=== PATIENT | female | born 1940 | race Two or more races ===

== ENCOUNTER 2024-06-04 16:37 | Inpatient (IN) | payer MEDICAID, SELFPAY ==
[2024-06-04 16:45] VITALS: BP 132/90; PULSE 107; RESP 20; TEMP 36.8; O2SAT 98
--- NOTE | 2024-06-04 17:07 | XR_ITS ---
Examination: CT brain head without contrast. 2-D sagittal coronal reconstructions Date and time of exam:June 04, 2024 1712 hrs. Indications: Patient fell today with injury to the head, head pain the large hematoma back of the head CTDI: vol (mGy):39.6 DLP: (mGycm):807 Technique: Multiple CT axial sections of the brain have been obtained, 5 mm slice thickness. Contrast has not been administered. 2-D sagittal, coronal reconstructions have been obtained Low dose protocols were performed. One or more of the following dose reduction techniques were used; automated exposure control, adjustment of the mA and/or KV according to patient size, use of iterative reconstruction technique. Findings: No significant ventricular enlargement. Intra-axial or extra-axial hemorrhage density is not seen. No mass effect or midline shift Basal cisterns are not remarkable. Fourth ventricle is midline. Cranial vault intact. Posterior left scalp hematoma Impression: Negative for acute hemorrhage, mass effect or midline shift
--- NOTE | 2024-06-04 17:07 | XR_ITS ---
Examination: CT cervical spine without contrast 2-D sagittal reconstructions 2-D coronal reconstructions 3-D reconstructions. Exam date and time:June 04, 2024 1712 hrs. Indications: Patient fell today with into the neck, neck pain CTDI:vol (mGy) 6.94 DLP: (mGycm) 155 Technique: Multiple 2 mm axial sections of the cervical spine have been obtained. The coronal and sagittal reconstructions have been obtained. 3-D reconstructions have been obtained. Low dose protocols were performed. One or more of the following dose reduction techniques were used; automated exposure control, adjustment of the mA and/or KV according to patient size, use of iterative reconstruction technique. Findings: Axial sections demonstrate intact base of the skull. C1 exhibit satisfactory relationship to the odontoid. No acute cervical vertebral body fracture seen. Alignment posterior spinous processes satisfactory. Advanced degenerative disc disease C5-C6 Impression: No acute cervical fracture.
--- NOTE | 2024-06-04 17:07 | XR_ITS ---
Examination: CT chest, without intravenous contrast. CT abdomen, without intravenous contrast. CT pelvis, without intravenous contrast. 2-D sagittal and coronal reconstructions. 3-D reconstructions. Date and time of exam:June 04, 2024 1725 hrs. Indications: Patient fell today with injury of the chest and abdomen, chest pain abdomen pain CTDI vol (mgy) 7.20 DLP (MGycm)422 Technique: Multiple CT images, 3.0 mm slice thickness, obtained chest, abdomen, pelvis, with the high-resolution 64 slice scanner.. Sagittal and coronal 2-D reconstructions are obtained. 3-D reconstructions Low dose protocols were performed. One or more of the following dose reduction techniques were used; automated exposure control, adjustment of the mA and/or KV according to patient size, use of iterative reconstruction technique. Findings: No pneumothorax pulmonary contusion or hemothorax Thoracic aorta pulmonary arteries intact No hemopericardium Manubrium sternum intact Fracture off the anterior superior margin of the T12 vertebral body, alignment of this vertebral body is satisfactory No abdominal parenchymal laceration Abdominal aorta intact Cholelithiasis Normal appendix Negative for pneumoperitoneum There is a fracture off the anterior cortex of S3 with slight offset as well as presacral hematoma measuring up to 17 mm Old right-sided rib fractures Acute fracture anterior both right and left inferior pubic rami with mild thickening of the piriformis muscles Hips appear intact Impression: No hemopericardium, pneumothorax, pulmonary contusion or hemothorax No abdominal parenchymal laceration Acute fracture anterior superior margin T12 vertebral body Acute fracture S3 with presacral hematoma Nondisplaced acute fractures right and left inferior pubic rami
--- NOTE | 2024-06-04 17:07 | PD.EDRME ---
Rapid Medical Screening Exam RME Arrival date/time: 06/04/24 16:37 82-year-old female presents the emergency department complains of trip and fall Chief Complaint: Fall Vital signs: Vital Signs Temperature 98.3 F 06/04/24 16:45 Pulse Rate 107 H 06/04/24 16:45 Respiratory Rate 20 06/04/24 16:45 Blood Pressure 132/90 H 06/04/24 16:45 Pulse Oximetry (%) 98 06/04/24 16:45 Oxygen Delivery Method Room Air 06/04/24 16:45
[2024-06-04] MEDS: HYDROcodone/APAP 5/325 TABLET 1 TAB PO (17:42)
--- NOTE | 2024-06-04 19:19 | PC.NURSE ---
Dr. Harden speaking to teleradiology at this time
[2024-06-04 19:38] VITALS: BP 172/102; PULSE 121; RESP 19; TEMP 36.8; O2SAT 95
[2024-06-04] MEDS: DIPHTH,PERTUSS(ACELL),TET VAC 0.5 ML VIAL IMi (20:42)
[2024-06-04] MEDS: cephALEXin 250 MG CAPSULE 500 MG PO (20:42)
[2024-06-04] MEDS: BACITRACIN OINT 1 GM PACKET TOP (20:43)
--- NOTE | 2024-06-04 20:51 | EDNOTE_ITS ---
ED Fall Injury RME/HPI General Chief Complaint: Fall Stated Complaint: FALL Time Seen by Provider: 06/04/24 19:20 Arrival date/time: 06/04/24 16:37 RME / HPI RME / HPI Narrative: 06/04/24 16:37 82-year-old female presents the emergency department complains of trip and fall This section includes all my notes and documentations, including HPI, PE, and ED course. Cordell Harden MD HPI: 82-year-old female here to be evaluated after a mechanical fall at home a few hours ago. She fell on her head and her right side. She has an open wound with bleeding on top of her head. She also reports lower back pain. She takes Eliqu is. No headache or dizziness. No neck pain. No chest pain or abdominal pain. No pain in the arms. No other complaints. ROS: All negative except as documented in HPI. Physical Exam: General: Alert and oriented. No acute distress when remaining still. HEENT: On top of her head, there is a 1 cm full?scalp thickness laceration with active bleeding. EOMI. PERRL. Neck: Supple. No tenderness. Heart: RRR. Lungs: No respiratory distress. Good air movement. No rhonchi, wheezing, rales. Chest: No tenderness. Abdomen: Soft and nontender. Normal bowel sounds. No distension. No rebound or guarding. Back: Equivocal tenderness in the lumbar region. Legs: No clubbing, cyanosis, edema. Skin: Warm and dry. Neuro: Alert and oriented X 3. Cranial Nerves II-XII grossly intact. No peripheral motor deficits. Musculoskeletal: Equivocal pelvic tenderness. All other major joints and bones are not tender with no limited ROM. I reviewed all diagnostic test results. My review of the CT reports is T12 fracture, sacral fracture with hematoma, and pelvic fracture. I discussed the case with our orthopedic surgeon and our hospitalist. About the presentation and exam and diagnostics and treatments here. And need of further care in the hospital. Will accept the patient. Our orthopedic surgeon recommends no Eliquis for 48 hours. Cordell Harden MD Related Data Previous Rx's ?Medication ?Instructions ?Recorded glipizide 10 mg tablet 10 mg PO ACBR #30 tabs 02/17/17 apixaban 2.5 mg tablet (Eliquis) 2.5 mg PO BID #24 tabs 07/31/17 lisinopril 10 mg tablet 10 mg PO QDAY #30 tabs 07/31/17 Allergies Allergy/AdvReac Type Severity Reaction Status Date / Time Penicillins Allergy Mild SWOLLEN Verified 07/27/17 13:39 AND RASH Course Quality Measures none Orders Category Date Time Status COVID-19 Screening Questionnaire NOW Care 06/04/24 20:48 Active Decision to Admit X1 Care 06/04/24 20:48 Active Wound Care [Wound Care] NOW Care 06/04/24 19:46 Active Consult to Orthopedic Stat Cons 06/04/24 20:[address] cervical spine wo con Stat Exams 06/04/24 17:[address] chest abdomen pelvis wo Stat Exams 06/04/24 17:[address] head/brain wo con Stat Exams 06/04/24 17:07 Completed UA, C/S IF [Urinalysis, C/S if Indicated] Stat Lab 06/04/24 20:47 Ordered Bacitracin Oint pkt Med 06/04/24 19:44 Discontinued 1 gm TOP X1 ONE HYDROcodone*/APAP 5/325 [[place] 5/325] Med 06/04/24 17:07 Discontinued 1 tab PO X1 ONE Tet,Diphth,Pertuss(Acell)-Tdap [Boostrix Vacc] Med 06/04/24 19:44 Discontinued 0.5 ml IMI .ONCE ONE cephALEXin [Keflex] Med 06/04/24 19:44 Discontinued 500 mg PO X1 ONE Vital Signs Vital signs: Vital Signs Temperature 98.3 F 06/04/24 16:45 Pulse Rate 107 H 06/04/24 16:45 Respiratory Rate 20 06/04/24 16:45 Blood Pressure 132/90 H 06/04/24 16:45 Pulse Oximetry (%) 98 06/04/24 16:45 Oxygen Delivery Method Room Air 06/04/24 16:45 Fall Patient data External records reviewed:: [facility] previous records Clinical information provided by:: patient and family Social determinants that could affect healthcare access:: none Patient has the following chronic illnesses:: CVA, DM, HTN How is presenting disease/condition affected by chronic disease/condition?: uneffected by Evaluation data The following diagnostics were reviewed and interpreted by me:: lab results and radiology exam(s) Lab and/or radiology exams considered but not ordered:: None Interpretation Summary: Scalp laceration, T12 fracture, sacral fracture with hematoma, pelvic fracture Medications / Prescriptions Medications or Prescriptions considered but not ordered:: None Medication administrations:: Medication Administration History Discontinued Medications Hydrocodone Bitart/Acetaminophen (Hydrocodone/Apap 5/325 Tablet) 1 tab PO X1 ONE Stop: 06/04/24 17:08 Last Admin: 06/04/24 17:42 Dose: 1 tab Documented By: Bacitracin (Bacitracin Oint 1 Gm Packet) 1 gm TOP X1 ONE Stop: 06/04/24 19:45 Last Admin: 06/04/24 20:43 Dose: 1 gm Documented By: SF Cephalexin HCl (Cephalexin 250 Mg Capsule) 500 mg PO X1 ONE Stop: 06/04/24 19:45 Last Admin: 06/04/24 20:42 Dose: 500 mg Documented By: SF Diphtheria/Tetanus/Acell Pertussis (Diphth,Pertuss(Acell),Tet Vac 0.5 Ml Vial) 0.5 ml IMi .ONCE ONE Stop: 06/04/24 19:45 Last Admin: 06/04/24 20:42 Dose: 0.5 ml Documented By: SF See chart Consultations Consultation(s) initiated? (list below): Yes Consultation #1 (Physician, Specialty, Details): Orthopedic surgeon--recommended admission and no Eliquis for 48 hours. Time: 20:40 Diagnosis Fall Differential Diagnosis: compression fracture and other (Brain injury, internal organ injury, fractures) Most likely diagnosis given after review of the tests above:: None Admission Indicated Admission indicated?: indicated Explain why admission is indicated or not indicated:: Orthopedic surgeon recommended admission Admission Request Was there a request for admission?: Yes Admission Attestation Admission request attestation: Discussed case with Hospitalist service regarding admission. Discussed patients ED course, exam findings, labs, and radiology results. The Hospitalist [agrees,declines] to accept the patient for admission. Disposition Plan Disposition Plan: Admit Discharge Plan Plan Patient Disposition: Admit Acute Care w/in Hospital Prescriptions/Referrals Prescriptions/Med Rec: No Action glipizide 10 MG tablet 10 mg PO ACBR Qty: 30 0RF apixaban [Eliquis] 2.5 mg Tablet 2.5 mg PO BID Qty: 24 0RF lisinopril 10 mg tablet 10 mg PO QDAY Qty: 30 0RF Referrals: Baljeet Roland MD [Primary Care Provider] - In 1 week Problem List Clinical Impression: Fall at home, T12 vertebral fracture, Laceration of scalp, Sacral fracture, Hematoma of sacrum, Pelvic fracture Patient/Caregiver Discharge Instructions Print Language: Togolese Stand Alone Forms: Renae Award Info., Patient Portal Info Letter
[2024-06-04 21:30] LABS: Collection Type, Urine Clean Catch; Squamous Epithelial Cell,Urine 0 /hpf (0-5)
--- NOTE | 2024-06-04 22:03 | ESHP_ITS ---
<Statement entered by Nieves Riley MD - 06/05/24 00:20> I Nieves Riley MD reviewed the note and agree with the resident's assessment & plan with exceptions as below. I have personally reviewed labs, imaging, home meds/prior records, examined the patient, formulated and discussed management plan with the IM team. An 82-year-old F with Hx of HLD, HTN, presented to ED following a fall with scalp laceration and back/hip pain noted to sustain multiple fractures including T12, S3 and pubic ramus. Patient noted to be in sinus tachycardia, had significant leukocytosis likely reactive in nature. UA positive for ketones, CT head unremarkable. Consult orthopedic surgery, admit inpatient for potential surgical repair. Continue gentle IV fluid resuscitation, hold anticoagulation / antiplatelets, n.p.o. past midnight. Hold on ARB's. Not starting on beta- blockers for rate control prior to a procedure. Documentation for date of: 06/04/24 HPI History of Present Illness History of present illness: The patient is an 82-year-old female with a past medical history of hypertension, hyperlipidemia, diabetes who presented to the ED on 06/04/2024 after a fall. Patient was said to have been in usual state of health until early hours of today, she had been out with her granddaughter when he got back home she was being helped out of the car. Patient walks with a walker. And was using it to get back into the house when she missed a step and fell and landed on her back and head. She said to not have lost consciousness but there is noticeable bleeding in the back of the head when she was helped back up. Patient had no concussive symptoms, no memory loss or gaps and no blackouts. She did endorse pain in the back of her head as well as her back in the lumbar region and pelvis. Shortly after, she was brought to the ED. Per ED doctor, patient was on Eliquis, however when patient and relative rest, it was reported that she only takes vitamins right now does not take any other medication, says her primary care but not in a while and has not been followed by any client relations specialist. ED course: In the ED, patient complained of pain in the back of the pelvic region, she was afebrile, however tachycardic with blood pressure borderline range on admission. CT cervical spine was negative as well as head CT. CT abdomen pelvis showed acute fracture of the anterior superior margin of T12 body and acute fractures of S3 with presacral hematoma as well as nondisplaced acute fractures of the right and left inferior pubic rami. The patient was given [place] in the ED as well as DTaP and Keflex, Ortho Dr Giles consulted and recommended to admit patient for possible surgical intervention. Review of Systems Review of Systems Narrative Review of Systems: GENERAL: Denies fevers/chills or diaphoresis. HEENT: Admits to 3/10 headache. NEURO: Denies unusual weakness or difficulty speaking. CARDIO: Denies chest pain or palpitations. PULM: Denies SOB, coughing, or wheezing. GI: Denies abdominal pain, N/V/C/D/reflux/gas, bright red blood per rectum or melena. Reports having BMs. URO: Denies burning/itching/pain/urinary changes. MSK/EXT/SKIN: Admits pain in occipital region, back and pelvic region. PSYCH: Cooperative, pleasant mood & affect. Exam Vital Signs Temp Pulse Resp BP Pulse Ox O2 Del Method 98.3 F 121 H 19 172/102 H 95 Room Air 06/04/24 19:38 06/04/24 19:38 06/04/24 19:38 06/04/24 19:38 06/04/24 19:38 06/04/24 19:38 Narrative Exam GENERAL: AAOX3 NEURO: [employer] grossly intact, moves extremities x4 HEENT: 2 x 2.5 cm laceration seen in the occipital region, with blood dried in hair. CARDIO: No chest pain on palpation. Heart RRR, no obvious murmurs PULM: No noted coughing/dyspnea. Lungs CTA B/L GI: Abdomen soft, nondistended, no pain on palpation. 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 SKIN/MSK/EXT: Occiput tender to touch, tenderness to palpation in the lumbosacral region as well as mild tenderness in the anterior pelvis. Results: Labs 06/04/24 21:58 06/04/24 21:58 Quality Measures Quality Measures none Advance care planning discussed with:: patient and child Medications Home Medications and Allergies Allergies Allergy/AdvReac Type Severity Reaction Status Date / Time Penicillins Allergy Mild SWOLLEN Verified 07/27/17 13:39 AND RASH Visit Medications Acetaminophen (Acetaminophen 325 Mg Tablet) 650 mg PO Q6H PRN PRN Reason: Pain 1-3 or Fever >100.3 Stop: 07/04/24 21:44 Hydrocodone Bitart/Acetaminophen (Hydrocodone/Apap 5/325 Tablet) 1 tab PO Q4HR PRN PRN Reason: PAIN SCALE 4-10(Mod-Sev Stop: 06/09/24 21:44 Ondansetron HCl (Ondansetron Inj 2 Mg/Ml Inj 2 Ml) 4 mg IV Q6H PRN; Protocol PRN Reason: NAUSEA OR VOMITING Stop: 07/04/24 21:44 Sennosides (Senna Tablet) 1 tab PO QDAY RON; Protocol Stop: 07/05/24 08:59 Discontinued Medications Hydrocodone Bitart/Acetaminophen (Hydrocodone/Apap 5/325 Tablet) 1 tab PO X1 ONE Stop: 06/04/24 17:08 Last Admin: 06/04/24 17:42 Dose: 1 tab Bacitracin (Bacitracin Oint 1 Gm Packet) 1 gm TOP X1 ONE Stop: 06/04/24 19:45 Last Admin: 06/04/24 20:43 Dose: 1 gm Cephalexin HCl (Cephalexin 250 Mg Capsule) 500 mg PO X1 ONE Stop: 06/04/24 19:45 Last Admin: 06/04/24 20:42 Dose: 500 mg Diphtheria/Tetanus/Acell Pertussis (Diphth,Pertuss(Acell),Tet Vac 0.5 Ml Vial) 0.5 ml IMi .ONCE ONE Stop: 06/04/24 19:45 Last Admin: 06/04/24 20:42 Dose: 0.5 ml Heparin Sodium (Porcine) (Heparin Sod Inj 5000 Unit/Ml Vial) 5,000 unit SC X1 ONE Stop: 06/04/24 21:49 Assessment & Plan Assessment Summary: The patient is an 82-year-old female with past medical history of hypertension, hyperlipidemia, diabetes who presented to the ED on 06/04/2024 after fall. #Acute pubic fracture #Acute fracture of T12 and S3 #s/p fall The patient presented and says she fell while ambulating with her walker. (Bedside states that she missed a step and fell on her back and had a period after she was also noticed to be bleeding in the back of head, however she did not lose consciousness and was not having blackouts. Patient endorsed pain in the back of her head as well as in pelvic region. Head CT and CT cervical spine are negative. In CT abdomen pelvis showed acute fracture of the anterior superior margin of T12 body and acute fractures of S3 with presacral hematoma as well as nondisplaced acute fractures of the right and left inferior pubic rami. Ortho Dr Giles consulted and recommended to admit patient for possible surgical intervention. Plan: -Admit to [facility] -Pain management, Tylenol, [place] -N.p.o. after midnight -Subcu heparin x 1 -Ortho consulted, appreciate recommendations #History of hypertension #History of hyperlipidemia The patient has a history of hypertension hyperlipidemia but is reported, does not use any medications currently. Blood pressure on admission initially borderline and after 170/102. Heart rate- 121 Plan: -IV labetalol 10 mg x 1 -Amlodipine 5mg daily #Leukocytosis WBC on admission was 17.8. Patient had no fever cough, GI or urinary symptoms. UA 4+ glucose, 2+ ketones and RBCs but negative esterase Plan: -Continue to monitor CBC #History of diabetes Patient has a history of diabetes reportedly uses no medications right now. Blood present on admission- 265 Last A1c 7 years ago-7.9 Plan: -A1c -ISS -Hypoglycemic protocol in place -Blood glucose check every 6 hours patient is n.p.o. Health maintenance: Dispo: MedSurg Diet: Car consistent low DVT: SC Heparin x1 [place]: None Lines: Peripheral Med Rec: Pending, f/u PT: Ordered Code: Full Case was discussed with attending physician, Dr Osvaldo Scott MD PGY-1
[2024-06-04 22:06] VITALS: BP 142/82; PULSE 123; RESP 18; TEMP 37.1; O2SAT 91
[2024-06-04 22:11] LABS: Bilirubin,Urine Negative (Negative); Blood,Urine 1+ (Negative); Clarity,Urine Clear (Clear/Hazy); Color,Urine Lt-Yellow (Lt Yel-Yel); Culture Indicated,Urine Not Indicated; Glucose, Urine 4+ (Negative); Ketones,Urine 2+ (Negative); Leukocyte Esterase,Urine Negative (Negative); Nitrite,Urine Negative (Negative); PH,Urine 6.5 (5.0-7.0); Protein,Urine Trace (Neg - Trace); RBC,Urine 13 /hpf (0-3); Specific Gravity,Urine 1.024 (1.001-1.035); Urobilinogen,Urine Negative mg/dL (0.0-1.0); WBC,Urine 5 /hpf (0-5)
[2024-06-04 22:12] LABS: Basophils # (Auto) 0.1 Thou/mm3 (0.0-0.2); Basophils % (Auto) 0 % (0-2.5); Eosinophils % (Auto) 0 % (0-10); Hematocrit 37.4 % (36.0-46.0); Hemoglobin 12.6 g/dL (12.0-16.0); Immature Granulocytes % (Auto) 1 % (0-0); Lymphocytes # (Auto) 0.7 Thou/mm3 (1.0-4.8); Lymphocytes % (Auto) 4 % (10-50); Mean Corpuscular HGB Conc 33.7 g/dl (31.0-37.0); Mean Corpuscular Hemoglobin 30.5 pg (25.0-35.0); Mean Corpuscular Volume 91 fL (80-100); Monocytes # (Auto) 0.8 Thou/mm3 (0.0-0.8); Monocytes % (Auto) 4 % (0-12); Neutrophils # (Auto) 16.1 Thou/mm3 (1.8-7.7); Neutrophils % (Auto) 91 % (37-80); Nucleated Red Blood Cell % 0 /100 WBC (0); Platelet Count 231 Thou/mm3 (140-440); RDW Standard Deviation 43.5 fL (36.4-46.3); Red Blood Count 4.13 Miln/mm3 (4.00-5.20); White Blood Count 17.8 Thou/mm3 (3.6-11.0)
[2024-06-04 22:22] LABS: Alanine Aminotransferase 10 U/L (10-49); Albumin, Serum 4.4 gm/dL (3.4-4.8); Albumin/Globulin Ratio 1.3 (1.2-2.2); Alkaline Phosphatase 111 U/L (46-116); Anion Gap 10 (7-16); Aspartate Amino Transferase 19 U/L (0-34); BUN/Creatinine Ratio 18 Ratio (12-20); Bilirubin,Total 0.8 mg/dL (0.3-1.2); Blood Urea Nitrogen 11 mg/dL (9-23); Calcium 9.7 mg/dL (8.3-10.6); Calcium (Corrected) 9.7 mg/dL (8.5-10.1); Carbon Dioxide 26.2 mMol/L (20.0-31.0); Chloride 97 mMol/L (98-107); Creatinine (Component) 0.6 mg/dL (0.6-1.3); Globulin 3.3 gm/dL (2.3-3.5); Glucose 265 mg/dL (74-106); Osmolality,Calculated 274 (275-295); Potassium 3.8 mMol/L (3.4-5.1); Sodium 133 mMol/L (136-145); Total Protein 7.7 gm/dL (5.7-8.2); eGFR > 60 See Note
[2024-06-04] MEDS: HEPARIN SOD INJ 5000 UNIT/ML VIAL SC (22:37)
[2024-06-04] MEDS: LIDOCAINE/PRILOCAINE CR 5GM 5 GM TUBE TOP (22:38)
[2024-06-04 22:59] LABS: Glucose Estimated Average 206 mg/dL (80-131); Hemoglobin A1C 8.8 % Hgb (4.8-6.0)
[2024-06-05] VITALS (8 sets, daily range): BP systolic 130–149; BP diastolic 72–87; PULSE 93–125; RESP 17–89; TEMP 36.1–37.1; O2SAT 92–94; BMI 18.8; BMI 13.0
[2024-06-05] MEDS: INSULIN HUM REGULAR 1 UNIT/0.01 ML (PER UNIT) SC (00:41)
[2024-06-05] MEDS: ACETAMINOPHEN w/COD 300-30 TABLET 2 TAB PO (00:50)
--- NOTE | 2024-06-05 01:43 | PC.NURSE ---
o2 SAT 89%WHILE SLEEPING. o2 nc 3l PLACED ON PT
--- NOTE | 2024-06-05 01:55 | PC.NURSE ---
Report called at around 0135. RN unable to receive report at that time. report given now to Armond TOM
[2024-06-05 05:48] LABS: Basophils % (Auto) 0 % (0-2.5); Eosinophils % (Auto) 0 % (0-10); Hematocrit 35.6 % (36.0-46.0); Hemoglobin 11.9 g/dL (12.0-16.0); Immature Granulocytes % (Auto) 1 % (0-0); Immature Granulocytes Auto 0.06 Thou/mm3 (0.00-0.00); Lymphocytes # (Auto) 1.2 Thou/mm3 (1.0-4.8); Lymphocytes % (Auto) 9 % (10-50); Mean Corpuscular HGB Conc 33.4 g/dl (31.0-37.0); Mean Corpuscular Hemoglobin 30.7 pg (25.0-35.0); Mean Corpuscular Volume 92 fL (80-100); Monocytes # (Auto) 0.9 Thou/mm3 (0.0-0.8); Monocytes % (Auto) 7 % (0-12); Neutrophils # (Auto) 10.7 Thou/mm3 (1.8-7.7); Neutrophils % (Auto) 83 % (37-80); Nucleated Red Blood Cell % 0 /100 WBC (0); Platelet Count 224 Thou/mm3 (140-440); RDW Standard Deviation 44.9 fL (36.4-46.3); Red Blood Count 3.88 Miln/mm3 (4.00-5.20); White Blood Count 12.9 Thou/mm3 (3.6-11.0)
[2024-06-05 06:39] LABS: Alanine Aminotransferase 11 U/L (10-49); Albumin, Serum 4.5 gm/dL (3.4-4.8); Anion Gap 7 (7-16); Aspartate Amino Transferase 16 U/L (0-34); BUN/Creatinine Ratio 17 Ratio (12-20); Bilirubin,Total 0.9 mg/dL (0.3-1.2); Blood Urea Nitrogen 10 mg/dL (9-23); Calcium 9.6 mg/dL (8.3-10.6); Calcium (Corrected) 9.6 mg/dL (8.5-10.1); Carbon Dioxide 27.8 mMol/L (20.0-31.0); Chloride 98 mMol/L (98-107); Creatinine (Component) 0.6 mg/dL (0.6-1.3); Globulin 3.3 gm/dL (2.3-3.5); Glucose 158 mg/dL (74-106); Osmolality,Calculated 268 (275-295); Phosphorous 2.6 mg/dL (2.4-5.1); Potassium 3.4 mMol/L (3.4-5.1); Sodium 133 mMol/L (136-145); Total Protein 7.8 gm/dL (5.7-8.2); eGFR > 60 See Note
[2024-06-05 06:40] LABS: Albumin/Globulin Ratio 1.4 (1.2-2.2); Alkaline Phosphatase 102 U/L (46-116); Cardiac Risk Estimate 4.2 RATIO (3.7-5.6); Cholesterol 227 mg/dL (132-200); HDL Cholesterol 54 mg/dL (40-60); LDL Cholesterol,Calculated 154 mg/dL (0-130); Thyroid Stimulating Hormone 0.91 uIU/mL (0.55-4.78); Triglycerides 94 mg/dL (30-150)
--- NOTE | 2024-06-05 07:20 | PC.NURSE ---
Pt. refused insulin.
[2024-06-05] MEDS: amLODIPine BESYLATE 5 MG TABLET PO (08:37)
[2024-06-05] MEDS: SENNA TABLET 1 TAB PO (08:38)
--- NOTE | 2024-06-05 08:44 | PC.PT ---
Patient has a pubic fracture. Will hold PT eval until ortho consult is performed.
--- NOTE | 2024-06-05 09:47 | ESPR_ITS ---
<Statement entered by Federico Saldana DO - 06/05/24 21:04> Senior attestation: Patient was examined and case was reviewed with team including attending physician. Note reviewed, I agree with most of its contents and agree with the patient's care. Orthopedic team following, does not advise surgery at this time however does advise repeat CT pelvis tomorrow to assess for changes to hematoma findings. Physical therapy evaluation pending. Patient's family has expressed interest in discussing with [facility] social service team regarding hospital course finances and insurance coverage, social service referral has been placed. Anticipate discharge in next 24-[address] and physical therapy recommendations. Federico Saldana DO PGY-3 Documentation for date of: 06/05/24 Subjective Subjective Interval history: Patient seen and examined at bedside. No acute events overnight. Patient denies any new pain, bleeding, swelling. Is able to lift legs without any pain. Sit up at bedside and have food comfortably. Dr. Giles was consulted--patient is not in need of any surgery. Will defer at this time. However will place in back brace and continue with physical therapy. Repeat CT pelvis tomorrow to assess for any changes in size and hematoma. Anticipate discharge if no changes. WBC downtrending 12.9, potassium 3.4, creatinine 0.6. Exam Vital Signs Temp Pulse Resp BP Pulse Ox O2 Del Method O2 Flow Rate 97.5 F 93 18 133/81 H 93 L Room Air 3 06/05/24 08:00 06/05/24 08:37 06/05/24 08:00 06/05/24 08:37 06/05/24 08:00 06/05/24 08:00 06/05/24 01:44 Narrative Exam GENERAL: AAOX3 NEURO: FRUIT ROOM HAND grossly intact, moves extremities x4 HEENT: 2 x 2.5 cm laceration seen in the occipital region, with blood dried in hair. CARDIO: No chest pain on palpation. Heart RRR, no obvious murmurs PULM: No noted coughing/dyspnea. Lungs CTA B/L GI: Abdomen soft, nondistended, no pain on palpation. 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 SKIN/MSK/EXT: Occiput tender to touch, tenderness to palpation in the lumbosacral region as well as mild tenderness in the anterior pelvis. Objective Labs 06/05/24 04:13 06/05/24 04:13 Labs: Laboratory Results - last 24 hr 06/04/24 06/04/24 06/05/24 20:56 21:58 04:13 WBC 17.8 H 12.9 H RBC 4.13 3.88 L Hgb 12.6 11.9 L Hct 37.4 35.6 L MCV 91 92 MCH 30.5 30.7 MCHC 33.7 33.4 RDW Std Deviation 43.5 44.9 Plt Count 231 224 Neut % (Auto) 91 H 83 H Lymph % (Auto) 4 L 9 L Wirt % (Auto) 4 7 Eos % (Auto) 0 0 Baso % (Auto) 0 0 Neut # (Auto) 16.1 H 10.7 H Lymph # (Auto) 0.7 L 1.2 Wirt # (Auto) 0.8 0.9 H Eos # (Auto) 0.0 0.0 Baso # (Auto) 0.1 0.0 Immature Gran # (Auto) 0.10 H 0.06 H Absolute Nucleated RBC 0.00 0.00 Immature Gran % 1 H 1 H Nucleated RBC % 0 0 Sodium 133 L 133 L Potassium 3.8 3.4 Chloride 97 L 98 Carbon Dioxide 26.2 27.8 Anion Gap 10 7 BUN 11 10 Creatinine 0.6 0.6 Estim Creat Clear Calc Not Performed. Not Performed. eGFR > 60 > 60 BUN/Creatinine Ratio 18 17 Glucose [address] Glu mg/dL 206 H Hemoglobin A1c 8.8 H Calculated Osmolality 274 L 268 L Calcium 9.7 9.6 Corrected Calcium 9.7 9.6 Phosphorus 2.6 Magnesium 2.0 Total Bilirubin 0.8 0.9 AST 19 16 ALT 10 11 Alkaline Phosphatase 111 102 Total Protein 7.7 7.8 Albumin 4.4 4.5 Globulin 3.3 3.3 Albumin/Globulin Ratio 1.3 1.4 Triglycerides 94 Cholesterol 227 H LDL Cholesterol, Calc 154 H HDL Cholesterol 54 Cholesterol/HDL Ratio 4.2 TSH 0.91 Ur Collection Type Clean Catch Urine Color Lt-Yellow Urine Clarity Clear Urine pH 6.5 Ur Specific [place] 1.024 Urine Protein Trace Urine Glucose (UA) 4+ A Urine Ketones 2+ A Urine Blood 1+ A Urine Nitrite Negative Urine Bilirubin Negative Urine Urobilinogen (Auto) Negative Ur Leukocyte Esterase Negative Urine RBC 13 H Urine WBC 5 Ur Squamous Epith Cells 0 Urine Bacteria None Ur Culture Indicated? Not Indicated Quality Measures Quality Measures none Advance care planning discussed with:: patient and other Assessment & Plan Assessment Current Active Medications: Generic Name Dose Route Start Last Admin Trade Name Freq PRN Reason Stop Dose Admin Acetaminophen 650 mg 06/04/24 21:45 Acetaminophen 325 Mg Tablet PO 07/04/24 21:44 Q6H PRN Pain 1-3 or Fever >100.3 Hydrocodone Bitart/Acetaminophen 1 tab 06/04/24 21:45 Hydrocodone/Apap 5/325 Tablet PO 06/09/24 21:44 Q4HR PRN PAIN SCALE 4-10(Mod-Sev Amlodipine Besylate 5 mg 06/05/24 09:00 06/05/24 08:37 Amlodipine Besylate 5 Mg Tablet PO 07/05/24 08:59 5 mg QDAY RON Administration Dextrose 25 ml 06/04/24 22:30 Dextrose 50%-Water Inj 50 Ml Syringe IV 07/04/24 22:29 Q15MIN PRN BG 50-70 responsive npo pt Dextrose 50 ml 06/04/24 22:30 Dextrose 50%-Water Inj 50 Ml Syringe IV 07/04/24 22:29 Q15MIN PRN BG <50 OR BG <70 & pt unresponsive Glucagon 1 mg 06/04/24 22:30 Glucagon Inj 1 Mg Vial IM Q15MIN PRN BG <70, and no IV access Insulin Human Lispro 0 unit 06/05/24 12:00 Insulin Lispro (Admelog) 1 Unit/0.01 Ml Unit SC 07/05/24 11:59 Q6HR RON Protocol Ondansetron HCl 4 mg 06/04/24 21:45 Ondansetron Inj 2 Mg/Ml Inj 2 Ml IV 07/04/24 21:44 Q6H PRN NAUSEA OR VOMITING Protocol Sennosides 1 tab 06/05/24 09:00 06/05/24 08:38 Senna Tablet PO 07/05/24 08:59 1 tab QDAY RON Administration Protocol Plan The patient is an 82-year-old female with past medical history of hypertension, hyperlipidemia, diabetes who presented to the ED on 06/04/2024 after fall. #Acute pubic fracture #Acute fracture of T12 and S3 #s/p fall The patient presented and says she fell while ambulating with her walker. (Bedside states that she missed a step and fell on her back and had a period after she was also noticed to be bleeding in the back of head, however she did not lose consciousness and was not having blackouts. Patient endorsed pain in the back of her head as well as in pelvic region. Head CT and CT cervical spine are negative. In CT abdomen pelvis showed acute fracture of the anterior superior margin of T12 body and acute fractures of S3 with presacral hematoma as well as nondisplaced acute fractures of the right and left inferior pubic rami. Plan: -Admit to [facility] -Pain management, Tylenol, [place] -Dr. Giles consulted--No surgical intervention at this time -Continue PT -Repeat CT pelvis tomorrow morning. Anticipate discharge if no change in hematoma size #History of hypertension #History of hyperlipidemia The patient has a history of hypertension hyperlipidemia but is reported, does not use any medications currently. Blood pressure on admission initially borderline and after 170/102. Heart rate- 121 Plan: -IV labetalol 10 mg x 1 -Amlodipine 5mg daily #Leukocytosis WBC on admission was 17.8. Patient had no fever cough, GI or urinary symptoms. UA 4+ glucose, 2+ ketones and RBCs but negative esterase Plan: -Continue to monitor CBC #History of diabetes Patient has a history of diabetes reportedly uses no medications right now. Blood present on admission- 265 Last A1c 7 years ago-7.9 A1c 06/05/24 8.8. Family seems to be in denial of patient's diabetic status stating that she is not in any need need of medication. Refusing any insulin. Health maintenance: Dispo: d/c pending CT pelvis Diet: Car consistent low DVT: SC Heparin x1 Schmitt: None Lines: Peripheral PT: Ordered Code: Full The patient's management plan was discussed with my attending physician Dr. Garcia and senior Dr. Saldana. Lizzie Najera, PGY-1 Attending Provider Attestation/Addendum I have discussed and was present for the essential components of the history, physical examination, diagnosis, and treatment plan with the resident. I agree with the patient's care as documented by the resident and amended herein by me. Washington Garcia DO. Patient seen and evaluated this AM. Patient's pain is well-controlled, her only complaint is wanting to drink water at this time. No surgical for intervention at this time however we will perform repeat CTAP in the morning to evaluate for evolution of presacral hematoma per orthopedic surgery recommendations. Likely discharge after that, patient's family wanted have the patient AMA today due to the fact they were worried about financial concerns considering they are gray pay however they decided to keep the patient additional day to err on the side of caution enabling a safe discharge. Although this document has been carefully reviewed, there may still be some phonetic and other typographical errors. These errors are purely grammatical due to imperfections in the software program and should not be construed in any way to compromise the substance of the patient's medical care during this visit.
--- NOTE | 2024-06-05 09:55 | PC.NURSE ---
per family and pt, pt does not take any medications. only vitamins. per daughter pt has been in [place] for the last couple of years, returned in February here. pt had a check up which included a heart check in [place] 4-5 months ago where she states nothing was wrong with her . attempted to explain pt A1C is elevated, per daughter it's because she is here in the hospital. explained this lab has to do with the last couple of months, daughter adamant pt diabetes is not insulin dependent and does not need insulin and that blood work done in [place] came back perfect. states her mom is healthy. does verbalized a history of stroke with left sided weakness,and a fall 6-7 years ago with a left hip fracture
--- NOTE | 2024-06-05 10:54 | PC.NURSE ---
attempte to call on consult, no answer, left voicemail with call back number
--- NOTE | 2024-06-05 12:30 | PC.NURSE ---
at bedside telling pt she can be full weightbearing when PT comes to see her, hangar brace pending
--- NOTE | 2024-06-05 15:20 | PC.SS ---
Patient is Indonesian speaking only. Patient is residing with her granddaughter and son. She was recently in [place]. Patient fell recently and was admitted for pubic fracture. Patient showed Medi-mehrdad. However, when contacting financial counselor, patient insurance termed. Patient is now a self pay. SS spoke to family with financial counselor present. Explained to patient, son, and graddaughter that patient and family will need to re-apply for Medi-mehrdad. Patient family states patient was ambulatory with walker for short distances prior to hospitalization. Financial counselor and myself spoke to family later this afternoon as they were wanting to leave AMA. Financial counselor was able to assist in re-applying for Medi-mehrdad.. Patient will remain self pay until this shows up in system by Sunday. FAmily aware and will continue to keep patient here. Cheryl, granddaughter, Tamara, granddaughter, transport: family
--- NOTE | 2024-06-05 15:45 | PC.SS ---
Rounding Note: Plan is to repeat CT scan. Dr. Giles recommendations are pending. Plan is to d/c tomorrow.
--- NOTE | 2024-06-05 16:19 | PC.DIETICIAN ---
1. If constipation persists, consider prune juice or milk of magnesia 2. If family later agrees, consider Tanvir supplement BID to promote wound healing 3. Consider ONS TID if intake is <50% (jer esquivel)
[2024-06-06] VITALS (8 sets, daily range): BP systolic 115–154; BP diastolic 64–88; PULSE 104–128; RESP 14–22; TEMP 36.2–36.8; O2SAT 91–99
--- NOTE | 2024-06-06 07:00 | XR_ITS ---
Examination: CT abdomen and pelvis without contrast. Coronal 3-D reconstructions. Sagittal 2-D reconstructions. Date and time of exam:June 06, 2024 0946 hours INDICATIONS: CT abdomen pelvis June 04, 2024 acute fracture T12 vertebral body, acute fracture as 3 with presacral hematoma CTDI: vol (mGy): 4.72 DLP: (mGycm): 236 Technique: Axial images of the abdomen have been obtained, 3 mm slice thickness Intravenous contrast material has not been administered. Low dose protocols were performed. One or more of the following dose reduction techniques were used; automated exposure control, adjustment of the mA and/or KV according to patient size, use of iterative reconstruction technique. Findings: Minimal bilateral pleural disease Large retrocardiac gastric hernia No focal liver or splenic lesions Gallstones No pancreatic or adrenal mass No hydronephrosis Aorta normal size No bowel obstruction Stable fracture at the anterior superior margin of T12 Stable fracture S3 with no definite change in presacral hematoma Urinary bladder intact IMPRESSION: Stable fracture anterior superior margin T12 Stable sacral fracture with no change in presacral hematoma
[2024-06-06 07:15] LABS: Alanine Aminotransferase < 7 U/L (10-49); Albumin, Serum 4.2 gm/dL (3.4-4.8); Albumin/Globulin Ratio 1.3 (1.2-2.2); Alkaline Phosphatase 87 U/L (46-116); Anion Gap 9 (7-16); Aspartate Amino Transferase 12 U/L (0-34); BUN/Creatinine Ratio 18 Ratio (12-20); Bilirubin,Total 0.9 mg/dL (0.3-1.2); Blood Urea Nitrogen 9 mg/dL (9-23); Calcium 8.9 mg/dL (8.3-10.6); Calcium (Corrected) 8.9 mg/dL (8.5-10.1); Carbon Dioxide 25.4 mMol/L (20.0-31.0); Chloride 98 mMol/L (98-107); Creatinine (Component) 0.5 mg/dL (0.6-1.3); Globulin 3.2 gm/dL (2.3-3.5); Glucose 228 mg/dL (74-106); Osmolality,Calculated 270 (275-295); Phosphorous 1.9 mg/dL (2.4-5.1); Potassium 3.4 mMol/L (3.4-5.1); Sodium 132 mMol/L (136-145); Total Protein 7.4 gm/dL (5.7-8.2); eGFR > 60 See Note
[2024-06-06 07:21] LABS: Basophils # (Auto) 0.1 Thou/mm3 (0.0-0.2); Basophils % (Auto) 0 % (0-2.5); Eosinophils # (Auto) 0.1 Thou/mm3 (0.0-0.5); Eosinophils % (Auto) 1 % (0-10); Hematocrit 36.9 % (36.0-46.0); Hemoglobin 12.1 g/dL (12.0-16.0); Immature Granulocytes % (Auto) 0 % (0-0); Immature Granulocytes Auto 0.03 Thou/mm3 (0.00-0.00); Lymphocytes # (Auto) 1.1 Thou/mm3 (1.0-4.8); Lymphocytes % (Auto) 9 % (10-50); Mean Corpuscular HGB Conc 32.8 g/dl (31.0-37.0); Mean Corpuscular Hemoglobin 30.6 pg (25.0-35.0); Mean Corpuscular Volume 93 fL (80-100); Monocytes # (Auto) 1.1 Thou/mm3 (0.0-0.8); Monocytes % (Auto) 8 % (0-12); Neutrophils # (Auto) 10.4 Thou/mm3 (1.8-7.7); Neutrophils % (Auto) 82 % (37-80); Nucleated Red Blood Cell % 0 /100 WBC (0); Platelet Count 188 Thou/mm3 (140-440); RDW Standard Deviation 46.1 fL (36.4-46.3); Red Blood Count 3.95 Miln/mm3 (4.00-5.20); White Blood Count 12.8 Thou/mm3 (3.6-11.0)
[2024-06-06] MEDS: amLODIPine BESYLATE 5 MG TABLET PO (08:39)
[2024-06-06] MEDS: SENNA TABLET 1 TAB PO (08:39)
[2024-06-06] MEDS: NAPH,KPH MBDB 1 PACKET (1.5 GM) PO (08:40)
[2024-06-06] MEDS: POT PHOS 15 mMol in NS 250 ML 15 MMOL/250 ML BAG 62.5 MMOL IV ×2 (09:50→13:50)
--- NOTE | 2024-06-06 10:34 | CHAP ---
Patient expressed gratitude for visit and prayer.
--- NOTE | 2024-06-06 12:26 | PD.RESDS ---
Planned Discharge Date 06/06/24 DS: Providers Provider Date of admission: 06/04/24 21:45 Primary care physician: Baljeet Roland MD Admitting Provider: Nieves Riley MD Attending Provider on Admission: Nieves Riley MD Consults: 06/04/24 20:42 Consult to Orthopedic Stat Comment: Pelvic fracture Consulting Provider: Leander Solano 06/04/24 22:29 Referral Physical Therapy Routine Comment: Physician Instructions: 06/05/24 09:55 Referral Registered Dietitian Routine Comment: 06/06/24 02:09 Referral [place] Routine Comment: Attending Provider on DC: Riley Garcia DO Discharging Provider: Vikram Aguilar MD DS: Diagnosis Problem List Completed Was Problem List Reviewed/Reconciled?: Yes Hospital Course Hospital Course Hospital course: Hospital Course: Ms Stoddard is a 82-year-old serbian speaking female with past medical history of hypertension, hyperlipidemia, diabetes who presented to the ED on 06/04/2024 after fall. She did not lose consciousness and was not having blackouts. Patient endorsed pain in the back of her head as well as in pelvic region. Head CT and CT cervical spine are negative. CT abdomen pelvis showed acute fracture of the anterior superior margin of T12 body and acute fractures of S3 with presacral hematoma as well as nondisplaced acute fractures of the right and left inferior pubic rami. Patient was started on pain management with Tylenol, [place]. Othropedic consult with Dr. Solano, per recommendations, no surgical intervention at this time. Continue PT. Repeat CT pelvis on 06/06 shows no change. Patient is completely asymptomatic. Problems on this admission: - Non displaced pubic rami fracture - Acute fracture of T12 and S3 - GLMF - Essential hypertension - Hyperlipidemia - T2 NIDDM Procedures: None Discharge instructions: - Follow up with PCP within 1 week from discharge - Take Celecoxib as needed for pain - Continue home medications : Lisinopril and Eliquis - Stop glipizide. Started Metformin 500mg twice a day for Diabetes - Started on Atorvastatin 40mg every night, for Hypercholesterolemia - Continue exercising with physical therapy, as tolerated - Return to ED if symptoms worsen We are grateful to be able to participate in Ms Stoddard's care. We wish her the best. - Vikram Aguilar MD Status at Discharge Cognitive/behavioral status at discharge: Stable and returned to baseline Time Spent with Patient Time attestation: Total time spent providing and/or coordinating discharge services: More than 50% Exam Vital Signs Temp Pulse Resp BP Pulse Ox O2 Del Method O2 Flow Rate 97.2 F 123 H 16 154/88 H 99 Room Air 0.5 06/06/24 08:00 06/06/24 10:03 06/06/24 10:03 06/06/24 08:39 06/06/24 10:03 06/06/24 08:00 06/06/24 10:03 Narrative Exam Constitutional Alert, oriented x4. Elderly HEENT Vision grossly intact. Patent nares. Trachea midline. Respiratory Chest normal on inspection and clear to auscultation bilaterally. Cardiovascular S1 and S2 audible, RRR. No murmurs or carotid bruit. No gross JVD. Abdominal Soft and non tender to palpation in all quadrants. BS + Genitourinary No bladder tenderness, no flank pain. Normal to palpation. Musculoskeletal Extremities tone within normal limits. No LE edema. Neurological CN II - XII grossly intact. Extremity motor and sensation grossly intact. Skin Warm, dry and intact. Senile purpura Psychiatric Patient has a good affect, is cooperative. Discharge Plan Plan Patient Disposition: HOME (Self Care) Patient condition on transfer: Stable Care Plan Goals: - Follow up with PCP within 1 week from discharge - Take Celecoxib as needed for pain - Continue home medications : Lisinopril and Eliquis - Stop glipizide. Started Metformin 500mg twice a day for Diabetes - Started on Atorvastatin 40mg every night, for Hypercholesterolemia - Continue exercising with physical therapy, as tolerated - Return to ED if symptoms worsen Prescriptions/Referrals Prescriptions/Med Rec: New metformin 500 mg tablet 500 mg PO BID 30 Days Qty: 60 0RF celecoxib 100 mg capsule 100 mg PO BID PRN (Reason: pain) Qty: 20 0RF atorvastatin 40 mg tablet 40 mg PO HS 30 Days Qty: 30 0RF Continued apixaban [Eliquis] 2.5 mg Tablet 2.5 mg PO BID Qty: 24 0RF lisinopril 10 mg tablet 10 mg PO QDAY Qty: 30 0RF Discontinued glipizide 10 MG tablet 10 mg PO ACBR Qty: 30 0RF Referrals: Baljeet Roland MD [Primary Care Provider] - Patient/Caregiver Discharge Instructions Meds to Beds: Yes Discharge Activity: as per physical therapy and resume usual activities Education Materials: Diabetes Exercise Plan, Diabetes Carbs Fats Protein, ED Pelvic Fracture Print Language: Hebrew Stand Alone Forms: Renae Award Info., Patient Portal Info Letter Discharge Order Discharge Orders: Discharge (Routine); Ordered 06/06/24 Ordered By: Vikram Aguilar Quality Discharge Quality Measures VTE prophylaxis MD Attestestation MD Attestation I have discussed and was present for the essential components of the discharge history, physical examination, diagnosis, and discharge treatment plan with the resident. I agree with the patient's discharge care as documented by the resident and amended herein by me. Washington Garcia, . The patient understood all discharge instructions, all questions were answered satisfactorily. The patient was instructed to return to the Emergency Department is symptoms worsened or persisted. Although this document has been carefully reviewed, there may still be some phonetic and other typographical errors. These errors are purely grammatical due to imperfections in the software program and should not be construed in any way to compromise the substance of the patient's medical care during this visit.
[2024-06-06] MEDS: METOPROLOL SUCCINATE XL 25 MG TABCR PO (12:40)
--- NOTE | 2024-06-06 15:43 | ESCONSULT_ITS ---
RE: MEIR BANG : 11/01/1941 DATE OF CONSULTATION: 06/05/2024 Thank you, , for asking me to consult with the patient whom I saw on 06/05/2024. HISTORY OF PRESENT COMPLAINT: As per history available, the patient fell down. Apparently, she missed a step in the house and then she fell down injuring her pelvic region. The patient was brought to the emergency room and x-ray was obtained. PAST MEDICAL HISTORY: The patient has a history of high blood pressure and hyperlipidemia. The patient also has diabetes mellitus. No history of asthma, seizures, chest pain, myocardial infarction, or bleeding disorder. PAST SURGICAL HISTORY: Nil available. DRUG HISTORY: The patient is on hydrocodone. The patient was on Eliquis, atorvastatin, lisinopril, and metformin at home. ALLERGIES: NIL KNOWN. FAMILY HISTORY AND SOCIAL HISTORY: Noncontributory in this case. PHYSICAL EXAMINATION: GENERAL: Fully alert and oriented to lady. VITAL SIGNS: Pulse is 104 per minute. Blood pressure is 148/76. NECK: Soft, supple. No mass felt. Trachea is centrally place. Cervical spine is mildly tender. CARDIOVASCULAR SYSTEM: First and second heart sound normal. No murmur heard. RESPIRATORY SYSTEM: Bilateral vesicular breath sounds. CHEST: Clear. ABDOMEN: Soft. No mass felt. Bowel sounds present. PELVIS: Revealed tenderness around thoracic lower region. Besides that, there is tenderness in the sacral area. DIAGNOSTIC DATA: The CT scan of the pelvic region was reviewed. It revealed fracture of the T12 vertebra. Beside that, the patient has fracture of the sacral third vertebra with hematoma. There is undisplaced fracture of the right and left inferior pubic rami. IMPRESSION: 1. Fracture of T12 vertebra. 2. Fracture of sacral third vertebra with presacral hematoma. 3. Undisplaced fracture of the inferior pubic ramus of both right and left side. The diagnosis and prognosis was explained to the patient in detail. Detailed discussion took place. The patient was advised that no surgical intervention is needed. The patient may be mobilized with the help of physical therapist with both legs full weight-bear. Presently, I believe that anticoagulant medications should be withheld because there is some presacral hematoma. We need to repeat CT scan again on 06/06/2024 to make sure that hematoma is not increasing in size. Once the patient is stabilized and medically fit, the patient may be discharged either home or to [facility] depending on the patient's family member's wish. Presently, I am signing off. In case if you have any further questions or carry, please feel free to contact me or my office. DT: 13:23:16 TT: 15:39:00 Ref: [id number] - TID: [id number]
== END 2024-06-06 14:05 | disposition home or self-care (01) | DRG 341 ==
LOC: SERX 20:50 → SERHOLD 22:10 → S3NX 06-05 03:16
PROVIDERS: Admitting Provider Student in an Organized Health Care Education/Training Program; Emergency Provider Emergency Medicine; PCP Family Medicine; Visit Provider Student in an Organized Health Care Education/Training Program
DX: S32.592A Other specified fracture of left pubis, initial encounter for closed fracture (principal); S32.591A Other specified fracture of right pubis, initial encounter for closed fracture; S22.089A Unspecified fracture of T11-T12 vertebra, initial encounter for closed fracture; S32.10XA Unspecified fracture of sacrum, initial encounter for closed fracture; S01.01XA Laceration without foreign body of scalp, initial encounter; E78.5 Hyperlipidemia, unspecified; I10 Essential (primary) hypertension; E11.9 Type 2 diabetes mellitus without complications; D72.829 Elevated white blood cell count, unspecified; Z79.84 Long term (current) use of oral hypoglycemic drugs; Z79.01 Long term (current) use of anticoagulants; Z79.899 Other long term (current) drug therapy; W01.0XXA Fall on same level from slipping, tripping and stumbling without subsequent striking against object, initial encounter; Y92.009 Unspecified place in unspecified non-institutional (private) residence as the place of occurrence of the external cause
CPT/HCPCS: 36415; 70450; 71250; 72125; 74176; 80053; 80061; 81001; 83036; 83735; 84100; 84443; 85025; 87081; 90471; 90715; 93005; 96372; 97162; 99285; J1643; J1815; J7999; A9270; J1644